=== PATIENT | male | born 1995 | race American Indian/Alaskan Native ===

== ENCOUNTER 2017-09-26 19:51 | Emergency (ER) | payer MEDICAID ==
[2017-09-26 22:24] LABS: Basophils % (Auto) 0.3 % (0.0-1.8); Eosinophils # (Auto) 0.1 K/mm3 (0.0-0.4); Eosinophils % (Auto) 0.8 % (0.0-4.3); Hematocrit 47.6 % (35.5-45.6); Hemoglobin 15.7 gm/dl (11.8-15.2); Lymphocytes # (Auto) 2.1 K/mm3 (1.2-5.4); Lymphocytes % (Auto) 19.5 % (13.4-35.0); Mean Corpuscular HGB Conc 33 % (32-34); Mean Corpuscular Hemoglobin 28 pg (28-32); Mean Corpuscular Volume 84 fl (84-94); Monocytes # (Auto) 0.8 K/mm3 (0.0-0.8); Monocytes % (Auto) 7.5 % (0.0-7.3); Platelet Count 269 K/mm3 (140-440); Red Blood Count 5.66 M/mm3 (3.65-5.03); Red Cell Distribution Width 13.5 % (13.2-15.2)
[2017-09-26 22:38] LABS: BUN/Creatinine Ratio 13; Blood Urea Nitrogen 14 mg/dL (9-20); Calcium 9.5 mg/dL (8.4-10.2); Hemolysis Index 4
[2017-09-27 00:29] VITALS: BP 121/86
--- NOTE | 2017-09-27 00:37 | Emergency Department Report ---
HPI - General Chief Complaint: Psych Time Seen by Provider: 09/27/17 00:22 - HPI HPI: Kenney 16 The patient is a 22-year-old male presenting with chief complaint of auditory hallucinations. The patient has a history of schizophrenia and normally takes Paxil 15 mg daily. The patient states he ran out of his medication approximately one week ago. The patient states for 3 days his auditory hallucinations mostly consisting with him holding a conversation with the voices in his head. The patient states sometimes there are negative interactions (patient gives example that voices "got mad" that he laughed at something they said). Patient denies suicidal or homicidal ideation. Patient denies visual hallucinations. Location: Mental state Duration:. 3 Days Quality: Auditory hallucinations Severity: Mild Modifying factors: [see above] Context: [see above] Mode of transportation: [not driving] ED Past Medical Hx - Past Medical History Previous Medical History?: Yes Hx Psychiatric Treatment: Yes (schizophrenia) - Surgical History Past Surgical History?: No - Family History Family history: no significant - Social History Smoking Status: Never Smoker (1/7 per day) Substance Use Type: None (denies illicit drug use) - Medications Home Medications: Home Medications Medication Instructions Recorded Confirmed Last Taken Type Olanzapine [Zyprexa] 15 mg PO QDAY #30 tablet 09/27/17 Unknown Rx ED Review of Systems ROS: Stated complaint: VOICES IN HEAD/MENTAL HEALTH Other details as noted in HPI Psychiatric: auditory hallucinations. denies: visual hallucinations, homicidal thoughts, suicidal thoughts Physical Exam - Physical Exam Vital Signs: Vital Signs 09/26/17 09/27/17 09/27/17 21:48 00:28 00:29 Temperature 97.8 F 98 F Pulse Rate 98 H 94 H Respiratory 18 18 18 Rate Blood Pressure 130/83 Blood Pressure 121/86 [Left] O2 Sat by Pulse 100 100 100 Oximetry Physical Exam: GENERAL: The patient is well-developed well-nourished male lying on stretcher not appearing to be in acute distress. [] HEENT: Normocephalic. Atraumatic. Extraocular motions are intact. Patient has moist mucous membranes. NECK: Supple. No meningitic signs are noted. Trachea midline CHEST/LUNGS: Clear to auscultation. There is no respiratory distress noted. HEART/CARDIOVASCULAR: Regular. There is no tachycardia. There is no gallop rub or murmur. ABDOMEN: Abdomen is soft, nontender. Patient has normal bowel sounds. There is no abdominal distention. SKIN: There is no rash. There is no edema. There is no diaphoresis. NEURO: The patient is awake, alert, and oriented. The patient is cooperative. The patient has normal speech and gait. MUSCULOSKELETAL: There is no evidence of acute injury. ED Course Vital Signs 09/26/17 09/27/17 09/27/17 21:48 00:28 00:29 Temperature 97.8 F 98 F Pulse Rate 98 H 94 H Respiratory 18 18 18 Rate Blood Pressure 130/83 Blood Pressure 121/86 [Left] O2 Sat by Pulse 100 100 100 Oximetry - Consultations Consultation #1: 09/27/17 02:53 Case discussed with mental health income tax consultant Jesus-patient be discharged home with follow-up with his psychiatrist ED Medical Decision Making - Lab Data Result diagrams: 09/26/17 21:56 09/26/17 21:56 Laboratory Tests 09/26/17 09/26/17 09/26/17 21:56 21:56 21:56 WBC RBC Hgb Hct MCV MCH MCHC RDW Plt Count Lymph % (Auto) [place] % (Auto) Eos % (Auto) Baso % (Auto) Lymph # [place] # Eos # Baso # Seg Neutrophils % Seg Neutrophils # Sodium 136 L Potassium 3.9 Chloride 92.1 L Carbon Dioxide 25 Anion Gap 23 BUN 14 Creatinine 1.1 Estimated GFR > 60 BUN/Creatinine Ratio 13 Glucose 71 L Calcium 9.5 Urine Color Urine Turbidity Urine pH Ur Specific [place] Urine Protein Urine Glucose (UA) Urine Ketones Urine Blood Urine Nitrite Urine Bilirubin Urine Urobilinogen Ur Leukocyte Esterase Urine WBC (Auto) Urine RBC (Auto) Hyaline Casts Urine Mucus Salicylates < 0.3 L Urine Opiates Screen Urine Methadone Screen Acetaminophen < 5.0 L Ur Barbiturates Screen Ur Phencyclidine Scrn Ur Amphetamines Screen U Benzodiazepines Scrn Urine Cocaine Screen U Marijuana (THC) Screen Plasma/Serum Alcohol 09/26/17 09/26/17 09/27/17 21:56 21:56 00:29 WBC 10.9 RBC 5.66 H Hgb 15.7 H Hct 47.6 H MCV 84 MCH 28 MCHC 33 RDW 13.5 Plt Count 269 Lymph % (Auto) 19.5 [place] % (Auto) 7.5 H Eos % (Auto) 0.8 Baso % (Auto) 0.3 Lymph # 2.1 [place] # 0.8 Eos # 0.1 Baso # 0.0 Seg Neutrophils % 71.9 H Seg Neutrophils # 7.8 H Sodium Potassium Chloride Carbon Dioxide Anion Gap BUN Creatinine Estimated GFR BUN/Creatinine Ratio Glucose Calcium Urine Color Yellow Urine Turbidity Clear Urine pH 5.0 Ur Specific [place] 1.029 Urine Protein 30 mg/dl Urine Glucose (UA) Neg Urine Ketones 80 Urine Blood Neg Urine Nitrite Neg Urine Bilirubin Neg Urine Urobilinogen 2.0 Ur Leukocyte Esterase Neg Urine WBC (Auto) 2.0 Urine RBC (Auto) 3.0 Hyaline Casts 40 Urine Mucus 3+ Salicylates Urine Opiates Screen Urine Methadone Screen Acetaminophen Ur Barbiturates Screen Ur Phencyclidine Scrn Ur Amphetamines Screen U Benzodiazepines Scrn Urine Cocaine Screen U Marijuana (THC) Screen Plasma/Serum Alcohol < 0.01 09/27/17 00:29 WBC RBC Hgb Hct MCV MCH MCHC RDW Plt Count Lymph % (Auto) [place] % (Auto) Eos % (Auto) Baso % (Auto) Lymph # [place] # Eos # Baso # Seg Neutrophils % Seg Neutrophils # Sodium Potassium Chloride Carbon Dioxide Anion Gap BUN Creatinine Estimated GFR BUN/Creatinine Ratio Glucose Calcium Urine Color Urine Turbidity Urine pH Ur Specific [place] Urine Protein Urine Glucose (UA) Urine Ketones Urine Blood Urine Nitrite Urine Bilirubin Urine Urobilinogen Ur Leukocyte Esterase Urine WBC (Auto) Urine RBC (Auto) Hyaline Casts Urine Mucus Salicylates Urine Opiates Screen Presumptive negative Urine Methadone Screen Presumptive negative Acetaminophen Ur Barbiturates Screen Presumptive negative Ur Phencyclidine Scrn Presumptive negative Ur Amphetamines Screen Presumptive negative U Benzodiazepines Scrn Presumptive negative Urine Cocaine Screen Presumptive negative U Marijuana (THC) Screen Presumptive positive Plasma/Serum Alcohol - Differential Diagnosis schizophrenia, auditory hallucinations Critical care attestation.: If time is entered above; I have spent that time in minutes in the direct care of this critically ill patient, excluding procedure time. ED Disposition Clinical Impression: Auditory hallucinations, Schizophrenia Disposition: DC-01 TO HOME OR SELFCARE Is pt being admited?: No Does the pt Need Aspirin: No Condition: Stable Instructions: Schizophrenia (ED) Additional Instructions: Return to the emergency department immediately should you develop worsening symptoms, fever, inability to tolerate food or liquid or any other concerns. Prescriptions: Olanzapine [Zyprexa] 15 mg PO QDAY #30 tablet Referrals: your, psychiatrist [Other] - SUKHJINDER Time of Disposition: 02:54
[2017-09-27 00:51] LABS: Amphetamine Screen,Urine PRESUMPTIVE NEGATIVE; Benzodiazepines Screen,Urine PRESUMPTIVE NEGATIVE; Cocaine Screen,Urine PRESUMPTIVE NEGATIVE; Methadone Screen,Urine PRESUMPTIVE NEGATIVE; Opiate Screen,Urine PRESUMPTIVE NEGATIVE
[2017-09-27 00:52] LABS: Bilirubin,Urine NEG (Negative); Blood,Urine NEG (Negative); Color,Urine Yellow (Yellow); Hyaline Casts,Urine 40 /LPF; Mucus,Urine 3+ /HPF
[2017-09-27 01:21] LABS: Cannabinoid Screen,Urine PRESUMPTIVE POSITIVE
== END 2017-09-27 03:37 | disposition home or self-care (01) ==
LOC: ED 19:51
DX: F20.9 Schizophrenia, unspecified (principal); F12.10 Cannabis abuse, uncomplicated; Z79.899 Other long term (current) drug therapy
CPT/HCPCS: 36415; 80048; 80307; 81001; 85025; 99284; G0480; 80320

== ENCOUNTER 2018-07-30 12:36 | Emergency (ER) | payer SELFPAY ==
[2018-07-30 13:26] VITALS: BP 118/72
--- NOTE | 2018-07-30 13:29 | Emergency Department Report ---
Blank Doc - Documentation Documentation: 23 y o presents lft finger lac does not want to talk about what happened hx of schizo he just wants his hands stitched EXAM: 1 cm lac to lft thumb PLAN fasttrack tetanus repair lac MSE Complete
== END 2018-07-30 15:39 | disposition left against medical advice (07) ==
LOC: ED 12:36
DX: M79.645 Pain in left finger(s) (principal); Z53.21 Procedure and treatment not carried out due to patient leaving prior to being seen by health care provider
CPT/HCPCS: 99282

== ENCOUNTER 2019-04-06 02:00 | Emergency (ER) | payer OTHER ==
[2019-04-06 02:35] VITALS: BP 126/89
--- NOTE | 2019-04-06 03:13 | Emergency Department Report ---
ED Psych HPI - General Chief Complaint: Medical Clearance Stated Complaint: MENTAL HEALTH EVAL Time Seen by Provider: 04/06/19 03:02 Source: patient, EMS Mode of arrival: Ambulatory - History of Present Illness Initial Comments: 23-year-old male with history of schizophrenia presents to the ED for mental health evaluation. Patient reports auditory hallucinations, difficulty sl eeping. Patient states he ran out of his medications 3 days ago. Patient states the voices are saying negative things to him, but are not commanding him to hurt himself or others. He denies SI or HI. Patient reports alcohol and ecstasy use a few days ago. -: days(s) (3) Associated Psychiatric Symptoms: auditory hallucinations Improves With: medication Context: recent alcohol abuse, recent drug abuse, not taking psychiatric Associated Symptoms: denies other symptoms Treatments Prior to Arrival: none - Related Data Previous Rx's Medication Instructions Recorded Last Taken Type OLANZapine [Zyprexa] 15 mg PO QDAY #30 tablet 08/04/18 04/01/19 Rx Allergies Allergy/AdvReac Type Severity Reaction Status Date / Time No Known Allergies Allergy Verified 10/29/18 13:15 ED Review of Systems ROS: Stated complaint: MENTAL HEALTH EVAL Other details as noted in HPI Comment: All other systems reviewed and negative Psychiatric: auditory hallucinations. denies: visual hallucinations, homicidal thoughts, suicidal thoughts ED Past Medical Hx - Past Medical History Previous Medical History?: Yes Hx Psychiatric Treatment: Yes (schizophrenia) - Surgical History Past Surgical History?: No - Social History Smoking Status: Former Smoker Substance Use Type: None - Medications Home Medications: Home Medications Medication Instructions Recorded Confirmed Last Taken Type OLANZapine [Zyprexa] 15 mg PO QDAY #30 tablet 08/04/18 04/06/19 04/01/19 Rx ED Physical Exam - General Limitations: No Limitations General appearance: alert, in no apparent distress - Head Head exam: Present: atraumatic, normocephalic - Eye Eye exam: Present: normal appearance - ENT ENT exam: Present: mucous membranes moist - Neck Neck exam: Present: normal inspection - Respiratory Respiratory exam: Present: normal lung sounds bilaterally. Absent: respiratory distress - Cardiovascular Cardiovascular Exam: Present: normal rhythm, tachycardia - GI/Abdominal GI/Abdominal exam: Absent: distended - Extremities Exam Extremities exam: Present: normal inspection - Neurological Exam Neurological exam: Present: alert, oriented X3 - Psychiatric Psychiatric exam: Present: flat affect - Skin Skin exam: Present: warm, dry, intact, normal color ED Course Vital Signs 04/06/19 02:33 Temperature 98.4 F Pulse Rate 112 H Respiratory 18 Rate Blood Pressure 126/89 O2 Sat by Pulse 98 Oximetry ED Medical Decision Making - Lab Data Result diagrams: 04/06/19 03:01 04/06/19 03:01 - Medical Decision Making Patient seen and evaluated by mental health custom protection officer. Patient does not meet criteria for inpatient placement at this time. Patient has been advised to follow up on an outpatient basis for his medications. Resources given. Critical care attestation.: If time is entered above; I have spent that time in minutes in the direct care of this critically ill patient, excluding procedure time. ED Disposition Clinical Impression: Schizophrenia Disposition: DC-01 TO HOME OR SELFCARE Is pt being admited?: No Condition: Stable Instructions: Schizophrenia (ED) Referrals: PRIMARY CARE, [Primary Care Provider] - 3-5 Days [facility] [Outside] - 3-5 Days Time of Disposition: 05:07
[2019-04-06 03:20] LABS: Basophils % (Auto) 0.7 % (0.0-1.8); Eosinophils # (Auto) 0.2 K/mm3 (0.0-0.4); Eosinophils % (Auto) 3.3 % (0.0-4.3); Hematocrit 48.3 % (35.5-45.6); Lymphocytes # (Auto) 3.1 K/mm3 (1.2-5.4); Lymphocytes % (Auto) 48.2 % (13.4-35.0); Mean Corpuscular HGB Conc 33 % (32-34); Mean Corpuscular Volume 82 fl (84-94); Monocytes # (Auto) 0.7 K/mm3 (0.0-0.8); Monocytes % (Auto) 10.3 % (0.0-7.3); Platelet Count 272 K/mm3 (140-440); Red Blood Count 5.86 M/mm3 (3.65-5.03); Red Cell Distribution Width 13.8 % (13.2-15.2)
[2019-04-06 03:30] LABS: BUN/Creatinine Ratio 11; Blood Urea Nitrogen 12 mg/dL (9-20); Calcium 9.7 mg/dL (8.4-10.2); Hemolysis Index 13
[2019-04-06 03:33] LABS: Benzodiazepines Screen,Urine PRESUMPTIVE NEGATIVE; Cocaine Screen,Urine PRESUMPTIVE NEGATIVE; Methadone Screen,Urine PRESUMPTIVE NEGATIVE; Opiate Screen,Urine PRESUMPTIVE NEGATIVE
[2019-04-06 03:38] LABS: Bilirubin,Urine NEG (Negative); Blood,Urine NEG (Negative); Color,Urine Amber (Yellow); Mucus,Urine 3+ /HPF
[2019-04-06 03:53] LABS: Amphetamine Screen,Urine PRESUMPTIVE POSITIVE; Cannabinoid Screen,Urine PRESUMPTIVE POSITIVE
== END 2019-04-06 05:38 | disposition home or self-care (01) ==
LOC: ED 02:00
DX: F20.9 Schizophrenia, unspecified (principal); Z87.891 Personal history of nicotine dependence
CPT/HCPCS: 36415; 80048; 80307; 80320; 81001; 85025; G0480

== ENCOUNTER 2020-04-28 11:32 | Emergency (ER) | payer SELFPAY ==
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
[2020-04-28 14:33] LABS: Basophils % (Auto) 0.5 % (0.0-1.8); Eosinophils # (Auto) 0.1 K/mm3 (0.0-0.4); Eosinophils % (Auto) 1.2 % (0.0-4.3); Hematocrit 44.5 % (35.5-45.6); Hemoglobin 14.8 gm/dl (11.8-15.2); Lymphocytes # (Auto) 1.9 K/mm3 (1.2-5.4); Lymphocytes % (Auto) 31.8 % (13.4-35.0); Mean Corpuscular HGB Conc 33 % (32-34); Mean Corpuscular Volume 84 fl (84-94); Monocytes # (Auto) 0.5 K/mm3 (0.0-0.8); Monocytes % (Auto) 9.4 % (0.0-7.3); Platelet Count 305 K/mm3 (140-440); Red Blood Count 5.33 M/mm3 (3.65-5.03); Red Cell Distribution Width 13.8 % (13.2-15.2)
--- NOTE | 2020-04-28 14:38 | XRay Report ---
LEFT FOOT 3 VIEWS INDICATION / CLINICAL INFORMATION: Laceration of left foot. COMPARISON: None available. FINDINGS: BONES and JOINT(S): No acute fracture or subluxation. No significant arthritis. SOFT TISSUES: No distinct soft tissue defect or other acute abnormality. ADDITIONAL FINDINGS: None. IMPRESSION: 1. No acute findings. Signer Name: Jayant Reddy MD Signed: 04/28/2020 2:34 PM Workstation Name: [id number]
[2020-04-28 14:44] LABS: BUN/Creatinine Ratio 9; Blood Urea Nitrogen 11 mg/dL (9-20); Calcium 9.4 mg/dL (8.4-10.2); Hemolysis Index 7
[2020-04-28] MEDS ORDERED: DIPHtheria,PERTUSSIS(ACELL),TETANUS VACCINE/PF 0.5 ML VIAL IM ONE (15:45)
[2020-04-28] MEDS ORDERED: POTASSIUM CHLORIDE ER 20 MEQ TAB PO ONE (15:45)
[2020-04-28 19:04] LABS: Bilirubin,Urine NEG (Negative); Blood,Urine NEG (Negative); Color,Urine Amber (Yellow); Mucus,Urine 3+ /HPF; RBC,Urine < 1.0 /HPF (0.0-6.0)
[2020-04-28 19:10] LABS: Amphetamine Screen,Urine PRESUMPTIVE NEGATIVE; Benzodiazepines Screen,Urine PRESUMPTIVE POSITIVE; Cannabinoid Screen,Urine PRESUMPTIVE POSITIVE; Cocaine Screen,Urine PRESUMPTIVE NEGATIVE; Methadone Screen,Urine PRESUMPTIVE NEGATIVE; Opiate Screen,Urine PRESUMPTIVE NEGATIVE
[2020-04-28] MEDS ORDERED: ZIPRASIDONE MESYLATE 20 MG VIAL IM ONE ×2 (23:30→23:35)
[2020-04-28] MEDS ORDERED: diphenhydrAMINE 50 MG/ML VIAL IM ONE (23:30)
[2020-04-28] MEDS ORDERED: LORazepam 2 MG/ML VIAL IM ONE (23:30)
[2020-04-28] MEDS ORDERED: LORazepam 2 MG/ML VIAL ONE (23:35)
[2020-04-28] MEDS ORDERED: WATER FOR INJ Sterile (PF) 10 ML ONE (23:35)
[2020-04-28] MEDS: diphenhydrAMINE 50 MG/ML VIAL IV ONE (23:35)
[2020-04-28] MEDS ORDERED: diphenhydrAMINE 50 MG/ML VIAL ONE (23:36)
[2020-04-29] MEDS: diphenhydrAMINE 50 MG/ML VIAL IV ONE (07:08)
[2020-04-29] MEDS ORDERED: HALOPERIDOL LACTATE 5 MG/1 ML INJ IM PRN (08:41)
[2020-04-29] MEDS ORDERED: LORazepam 2 MG/ML VIAL IM PRN (08:41)
[2020-04-29] MEDS: diphenhydrAMINE 50 MG/ML VIAL IM PRN (09:08)
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
[2020-04-30] MEDS: diphenhydrAMINE 50 MG/ML VIAL IM PRN (05:04)
[2020-04-30 07:53] VITALS: BP 141/96
--- NOTE | 2020-04-30 11:01 | Progress Note ---
Subjective - Reason for Consult Consult date: 04/30/20 Reason for consult: aggression - Chief Complaint Chief complaint: During my interview with the patient this morning, he is a/o x 3. He appears to be responding to internal stimuli. His thinking is somewhat disorganized. He states to me "I squeezed it" upon greeting him. When asked what was he speaking of, the patient states "I don't know. I thought I just told you." He says he was brought here "because I broke the screen door. He said it looked like somebody I worked with at [employer]." The patient verbalizes "hearing voices telling me to answer your questions." He denies SI/HI. He says he "did crack about a week ago." The patient says he was diagnosed with "schizoaffective and psychosis." He says he takes "olanzapine but been off for a few days." Spoke with the patient's mother, Fiona Austin. She says the patient had a "psychotic break and needs help." She says he has "full conversations and shouts and becomes angry with people who aren't there." She says "it was frightening." REVIEW OF SYSTEMS Constitutional: Negative for weight loss ENT: Negative for stridor Respiratory: Negative for cough or hemoptysis All other systems reviewed and are negative MENTAL STATUS EXAMINATION General Appearance and Behavior: Age appropriate, good hygiene, not wearing appropriate clothes, good eye contact, cooperative polite with questioning. Cooperation: Participating/engaged Psychomotor Behavior: Psychomotor agitation Mood: Good Affect and affective range: euthymic, euphoric Thought Process: Circumstantial, Illogical, Thought Content: Hallucinations, responding to internal stimuli Speech: normal tone and pace Intellectual Functioning: Average Suicidal Ideation: Denies SI Homicidal Ideation: Denies HIl Impulse Control: Impaired Insight and Judgment: Limited insight and judgment Memory: Normal, Attention: Divided attention impaired Orientation: Alert, oriented, Assessment and Plan (1) Schizophrenia Current Visit: Yes Status: Acute (2) Psychoactive substance abuse Current Visit: Yes Status: Acute TREATMENT PLAN MEDICATIONS: Increased zyprexa 20mg po daily Start Depakote DR 125mg po BID Risks, benefits and alternatives of medications discussed with the patient, questions answered and consent obtained from patient. PSYCHOTHERAPY: Supportive psychotherapy provided MEDICAL: Per primary team DELIRIUM PRECAUTIONS: Please re-orient patient frequently, keep lights on during the day, and minimize benzodiazepines and opiates as these medications could worsen patient's confusion. UNIVERSAL GRINDER TOOL: DISPOSITION: Recommend acute inpatient psychiatric hospitalization at this time LEGAL STATUS: 1013 FOLLOW-UP: Will follow Thank you for the consult. Please contact with any questions and/or concerns. Mental Status Exam - Vital signs Last Vital Signs Temp 97.8 F 04/30/20 07:52 Pulse 90 04/30/20 07:52 Resp 20 04/30/20 07:52 BP 141/96 04/30/20 07:52 Pulse Ox 100 04/30/20 07:52
[2020-04-30] MEDS ORDERED: DIVALPROEX DR 125 MG TAB PO SCH (12:00)
== END 2020-04-30 15:20 ==
LOC: ED 11:32 → EEVIPCON 11:32 → ED 04-30 15:20
DX: F23 Brief psychotic disorder (principal); F25.9 Schizoaffective disorder, unspecified; F17.200 Nicotine dependence, unspecified, uncomplicated; F12.90 Cannabis use, unspecified, uncomplicated; Z79.899 Other long term (current) drug therapy
CPT/HCPCS: 36415; 73630; 80048; 80307; 81001; 84132; 85025; 90471; 90715; 96372; 99285; J1200; J1630; J2060; J3486; 80320; G0480

== ENCOUNTER 2021-10-12 17:32 | Emergency (ER) | payer SELFPAY ==
[2021-10-12 17:34] VITALS: BP 149/86
--- NOTE | 2021-10-12 19:01 | Emergency Department Report ---
ED General Adult HPI - General Chief complaint: Medical Clearance Stated complaint: MED REFILL Source: patient, EMS Mode of arrival: Ambulatory Limitations: No Limitations - History of Present Illness Initial comments: Patient is a 26-year-old -[place] male with a history of paranoid schizophrenia and who takes Zyprexa 20 mg daily presents to the ED requesting for medication refill of his Zyprexa that he ran out of 2 weeks ago. Patient states that he is not scheduled to see his psychiatrist and until about 30 days. Patient denies suicidal or homicidal ideations, hallucinations, change in vision, chest pain, shortness of breath, suicidal or homicidal ideations or change in vision. MD Complaint: Medication refill -: Sudden, week(s) (2) Location: head Radiation: non-radiation Severity scale (0 -10): 0 Quality: dull Improves with: none Worsens with: none Associated Symptoms: denies other symptoms. denies: confusion, chest pain, cough, diaphoresis, fever/chills, headaches, loss of appetite, malaise, nausea/vomiting, rash, seizure, shortness of breath, syncope, weakness Treatments Prior to Arrival: none - Related Data Previous Rx's Medication Instructions Recorded Last Taken Type OLANZapine [Zyprexa] 15 mg PO QDAY #7 tablet 12/29/19 Unknown Rx OLANZapine [Zyprexa] 20 mg PO DAILY #60 tab 10/12/21 Unknown Rx Allergies Allergy/AdvReac Type Severity Reaction Status Date / Time No Known Allergies Allergy Verified 10/12/21 17:34 ED Review of Systems ROS: Stated complaint: MED REFILL Other details as noted in HPI Constitutional: malaise. denies: chills, fever Eyes: denies: eye pain, eye discharge, vision change ENT: denies: ear pain, throat pain Respiratory: denies: cough, shortness of breath, wheezing Cardiovascular: denies: chest pain, palpitations Endocrine: no symptoms reported Gastrointestinal: denies: abdominal pain, nausea, diarrhea Genitourinary: denies: urgency, dysuria Musculoskeletal: denies: back pain, joint swelling, arthralgia Skin: denies: rash, lesions Neurological: denies: headache, weakness, paresthesias Psychiatric: anxiety. denies: depression, auditory hallucinations, visual hallucinations, homicidal thoughts, suicidal thoughts Hematological/Lymphatic: denies: easy bleeding, easy bruising ED Past Medical Hx - Past Medical History Hx Psychiatric Treatment: Yes (schizophrenia) - Social History Smoking Status: Current Every Day Smoker Substance Use Type: Marijuana - Medications Home Medications: Home Medications Medication Instructions Recorded Confirmed Last Taken Type OLANZapine [Zyprexa] 15 mg PO QDAY #7 tablet 12/29/19 04/29/20 Unknown Rx OLANZapine [Zyprexa] 20 mg PO DAILY #60 tab 10/12/21 Unknown Rx ED Physical Exam - General Limitations: No Limitations General appearance: alert, in no apparent distress - Head Head exam: Present: atraumatic, normocephalic, normal inspection - Eye Eye exam: Present: normal appearance, PERRL, EOMI Pupils: Present: normal accommodation - ENT ENT exam: Present: normal exam, normal orophraynx, mucous membranes moist, TM's normal bilaterally, normal external ear exam - Neck Neck exam: Present: normal inspection, full ROM. Absent: tenderness - Respiratory Respiratory exam: Present: normal lung sounds bilaterally. Absent: respiratory distress, wheezes, rales, rhonchi, chest wall tenderness, accessory muscle use, other - Cardiovascular Cardiovascular Exam: Present: normal rhythm, tachycardia, normal heart sounds. Absent: systolic murmur, diastolic murmur, rubs, gallop - GI/Abdominal GI/Abdominal exam: Present: soft, normal bowel sounds. Absent: tenderness, guarding, hyperactive bowel sounds, hypoactive bowel sounds, organomegaly - Extremities Exam Extremities exam: Present: normal inspection, full ROM, normal capillary refill. Absent: tenderness - Back Exam Back exam: Present: normal inspection, full ROM. Absent: tenderness, CVA tenderness (R), CVA tenderness (L), muscle spasm, paraspinal tenderness, vertebral tenderness - Neurological Exam Neurological exam: Present: alert, oriented X3, CN II-XII intact, normal gait, reflexes normal - Psychiatric Psychiatric exam: Present: normal affect, normal mood, anxious. Absent: depressed, flat affect - Skin Skin exam: Present: warm, dry, intact, normal color. Absent: rash ED Course Vital Signs 10/12/21 17:33 Pulse Rate 113 H Blood Pressure 149/86 [Left] O2 Sat by Pulse 98 Oximetry ED Medical Decision Making - Medical Decision Making This is a 26-year-old -[place] male with a history of paranoid schizophrenia and who takes Zyprexa 20 mg daily presents to the ED requesting for medication refill of his Zyprexa that he ran out of 2 weeks ago. Patient states that he is not scheduled to see his psychiatrist and until about 30 days. In the ED, patient is alert and oriented x3 and is not in any distress. Patient was given initial oral dose of Zyprexa 20 mg p.o. x1 in the ED. Patient will discharge home on medications and advised to follow-up with his psychiatrist as previously scheduled. Patient is advised to return to the ED immediately if symptoms get worse. - Differential Diagnosis Medication refill; chronic schizophrenia Critical care attestation.: If time is entered above; I have spent that time in minutes in the direct care of this critically ill patient, excluding procedure time. ED Disposition Clinical Impression: Chronic schizophrenia, Medication refill Disposition: 01 HOME / SELF CARE / HOMELESS Is pt being admited?: No Does the pt Need Aspirin: No Condition: Stable Instructions: Schizophrenia, Supporting Someone With Schizophrenia, Managing Schizophrenia Additional Instructions: Take your medication as scheduled, follow-up with your primary care physician or psychiatrist as previously scheduled. Return to the ED immediately if symptoms get worse. Prescriptions: OLANZapine [Zyprexa] 20 mg PO DAILY #60 tab Referrals: [facility] [Provider Group] - as needed Time of Disposition: 19:00 Print Language: [id number]
== END 2021-10-12 20:28 | disposition home or self-care (01) ==
LOC: ED 17:32
DX: Z76.0 Encounter for issue of repeat prescription (principal); F20.9 Schizophrenia, unspecified; F17.200 Nicotine dependence, unspecified, uncomplicated
CPT/HCPCS: 99283